=== PATIENT | female | born 1955 | race Caucasian/White ===

== ENCOUNTER → 2017-01-27 | Outpatient (CLI) | payer BC ==
[~2017-01-27] MED LIST: CALCIUM 1200 W/1 SGL PO; CALCIUM600 M1 PO; CARDI-OMEGA1000 MG PO; CENTRUM SILVER1 TA2 PO; CILOXAN .3% EY2.5 ML OU; COMBI; COZAAR 50MG50 MG/TAB PO; EPA FISH OIL1000 MG PO; FASTIN30 MG PO; FERROUS SU325 MG/TAB PO; FISH OIL REGUL300 MG PO; FOLIC ACID 40400 MCG PO; GENTEAL MILD 1515 M1 OU; GLUCOSAMINE & C1 CA1 PO; GLUCOSAMINE & C1 TA1 PO; IMODIUM2 MG PO; MOBIC 7.5MG7.5 MG PO; MULTIPLE VITAMI1 CAP PO; NORCO 325 MG-7.1 TAB PO; PHENTERMINE15 MG PO; ROXICODONE 55 MG/TAB PO; SUDAFED; VITAMIN C BUFF500 MG PO; VITAMIN C500 MG PO; XARELTO10 MG PO; [UNRECOGNIZED DRUG - OTHER]; [UNRECOGNIZED DRUG - OTHER] PO; hydro Eye PO
== END ==
LOC: MC.RAD 01-20 07:20
DX: Z12.31 Encounter for screening mammogram for malignant neoplasm of breast (principal)

== ENCOUNTER 2017-05-15 15:02 | Inpatient (IN) | payer BC ==
[~2017-05-15] VITALS: Wt 86.5 kg
[~2017-05-15 15:02] MED LIST changes: -CILOXAN .3% EY2.5 ML OU; -COZAAR 50MG50 MG/TAB PO; -FERROUS SU325 MG/TAB PO; -FOLIC ACID 40400 MCG PO; -MOBIC 7.5MG7.5 MG PO; -NORCO 325 MG-7.1 TAB PO; -ROXICODONE 55 MG/TAB PO; -VITAMIN C500 MG PO; -XARELTO10 MG PO
[2017-06-05] MEDS ORDERED: COZAAR 50MG50 MG/TAB PO (09:27)
[2017-06-05] MEDS ORDERED: CILOXAN .3% EY2.5 ML OU (09:30)
[2017-06-06] VITALS (11 sets, daily range): BP systolic 115–166; BP diastolic 50–74; PULSE 50–90; TEMP 97.6–98.6
[2017-06-06] MEDS ORDERED: VITAMIN C500 MG PO (05:37)
[2017-06-06] MEDS ORDERED: FOLIC ACID 40400 MCG PO (05:38)
[2017-06-06] MEDS ORDERED: FERROUS SU325 MG/TAB PO (05:38)
[2017-06-06] MEDS ORDERED: MOBIC 7.5MG7.5 MG PO (05:39)
[2017-06-07 01:16] VITALS: BP 125/64; PULSE 72; TEMP 98.5
[2017-06-07 03:43] VITALS: BP 124/51; PULSE 61; TEMP 98.8
[2017-06-07 05:28] LABS: HEMATOCRIT 35.1 % (37.0-47.0)
[2017-06-07 07:24] VITALS: BP 146/61; PULSE 78; TEMP 98.5
[2017-06-07 11:56] VITALS: BP 132/53; PULSE 71; TEMP 98.2
[2017-06-07 16:26] VITALS: BP 142/63; PULSE 79
[2017-06-07 19:02] VITALS: BP 146/68; PULSE 86; TEMP 98.9
[2017-06-08 00:58] VITALS: BP 145/69; PULSE 97; TEMP 98.8
[2017-06-08 03:39] VITALS: BP 154/70; PULSE 98; TEMP 99
[2017-06-08 06:31] LABS: HEMOGLOBIN 12.3 g/dl (12.5-16.0)
[2017-06-08 06:42] LABS: HEMATOCRIT 36.7 % (37.0-47.0)
[2017-06-08 08:04] VITALS: BP 138/62; PULSE 84; TEMP 97.8
[2017-06-08] MEDS ORDERED: XARELTO10 MG PO (10:18)
[2017-06-08] MEDS ORDERED: NORCO 325 MG-7.1 TAB PO (10:19)
[2017-06-08] MEDS ORDERED: ROXICODONE 55 MG/TAB PO (10:20)
[2017-06-08 12:30] VITALS: BP 135/55; PULSE 81; TEMP 98.7
== END 2017-06-08 14:24 | disposition home or self-care (01) | DRG 470 ==
LOC: JCC 06-06 05:04
PROVIDERS: Orthopaedic Surgery
PROC: 0SRC0J9 Replacement of Right Knee Joint with Synthetic Substitute, Cemented, Open Approach (ICD-10-PCS; principal; 2017-06-06 07:30)
DX: M17.11 Unilateral primary osteoarthritis, right knee (principal); I10 Essential (primary) hypertension
CPT/HCPCS: A9284; C1713; C1776; J0690; J1100; J2250; J2274; J2405; J2550; J2704; J3010; J7042; J7120

== ENCOUNTER → 2019-01-15 | Outpatient (CLI) | payer MEDICARE, OTHER ==
[~2019-01-15] MED LIST changes: +CILOXAN .3% EY2.5 ML OU; +COZAAR 50MG50 MG/TAB PO; +FERROUS SU325 MG/TAB PO; +FOLIC ACID 40400 MCG PO; +MOBIC 7.5MG7.5 MG PO; +NORCO 325 MG-7.1 TAB PO; +ROXICODONE 55 MG/TAB PO; +VITAMIN C500 MG PO; +XARELTO10 MG PO
== END ==
LOC: MC.RAD 08:39
DX: Z12.31 Encounter for screening mammogram for malignant neoplasm of breast (principal)

== ENCOUNTER → 2020-08-27 | Outpatient (CLI) | payer MEDICARE, OTHER | LOC: MC.RAD 07:45 | DX: Z12.31 Encounter for screening mammogram for malignant neoplasm of breast (principal) ==

== ENCOUNTER 2021-01-22 09:37 | Day surgery (SDC) | payer MEDICARE ==
[~2021-01-22] VITALS: Ht 157.5 cm; Wt 90.9 kg
[2021-01-22] MEDS ORDERED: NATURE'S BLE1000 MCG PO (10:11)
[2021-01-22 10:12] VITALS: BP 138/74; PULSE 81; TEMP 98.1
--- NOTE | 2021-01-22 10:44 | NUR ---
ALTAGRACIA Medrano requested that the patient follow up with Dr. Michael Cooper, PCP, regarding frequent PVCs. This RN gave a courtesy call to Dr. Cooper's office and had to leave a message with the request for an appointment to evaluate the patient, with contact information to call back with questions.
[2021-01-22 12:10] VITALS: BP 116/71; PULSE 77
--- NOTE | 2021-01-22 12:10 | NUR ---
Pt to GI bay 2 via cart from ENDO. Pt awake and alert. Pt ambulates to recliner with stand by assistance. Warm blanket provided. Pt denies pain or nausea. Juice and applesauce given per pt request. in room. Will continue to monitor. Call light within reach.
[2021-01-22 12:25] VITALS: BP 143/72; PULSE 73
--- NOTE | 2021-01-22 12:25 | NUR ---
Pt continues to rest. Denies needs. Call light within reach.
[2021-01-22 12:40] VITALS: BP 146/59; PULSE 70
--- NOTE | 2021-01-22 12:40 | NUR ---
Discharge instructions reviewed. Pt voices understanding. IV site discontinued with all parts intact. Pt up to dress. Call light within reach.
--- NOTE | 2021-01-22 13:00 | NUR ---
Pt escorted to private car via wheel chair. Pt accompanied home by her .
== END 2021-01-22 13:00 | disposition home or self-care (01) ==
LOC: SDCO 09:37
DX: K22.2 Esophageal obstruction (principal); K21.9 Gastro-esophageal reflux disease without esophagitis; K29.60 Other gastritis without bleeding; K44.9 Diaphragmatic hernia without obstruction or gangrene; I10 Essential (primary) hypertension; M19.90 Unspecified osteoarthritis, unspecified site; Z88.8 Allergy status to other drugs, medicaments and biological substances; E78.00 Pure hypercholesterolemia, unspecified; E66.9 Obesity, unspecified; Z20.822 Contact with and (suspected) exposure to COVID-19; Z87.11 Personal history of peptic ulcer disease; Z79.899 Other long term (current) drug therapy; Z90.49 Acquired absence of other specified parts of digestive tract; Z96.659 Presence of unspecified artificial knee joint; Z86.018 Personal history of other benign neoplasm; Z68.34 Body mass index [BMI] 34.0-34.9, adult; Z83.3 Family history of diabetes mellitus
CPT/HCPCS: C1726; J2704; J3010; J7120

== ENCOUNTER → 2023-10-04 | Outpatient (CLI) | payer MEDICARE ==
[~2023-10-04] MED LIST changes: +NATURE'S BLE1000 MCG PO
== END ==
LOC: MC.RAD 08:31
DX: Z12.31 Encounter for screening mammogram for malignant neoplasm of breast (principal)